=== PATIENT | male | born 1955 | race Caucasian/White ===

== ENCOUNTER 2023-11-03 04:55 | Inpatient (IN) | payer OTHER, MEDICARE ==
[~2023-11-03] VITALS: Ht 177.8 cm; Wt 107.0 kg
[2023-11-03] MEDS ORDERED: ACETAMINOPHEN 500 MG TABLET ONE (05:08)
[2023-11-03] MEDS: ACETAMINOPHEN 500 MG TABLET PO ONE (05:30)
[2023-11-03] MEDS: GABAPENTIN 300 MG CAPSULE ONE (05:30)
[2023-11-03 05:44] LABS: BASOPHILS % (AUTO) 0.7 % (0.0-2.0); EOSINOPHILS # (AUTO) 0.1 K/uL (0.0-0.4); EOSINOPHILS % (AUTO) 2.1 % (0.0-4.0); HEMATOCRIT 43.2 % (36-54); HEMOGLOBIN 14.8 g/dL (14.0-18.0); LYMPHOCYTES # (AUTO) 1.9 K/uL (1.0-5.5); LYMPHOCYTES % (AUTO) 32.1 % (20.5-51.5); MEAN CORPUSCULAR HEMOGLOBIN 31 pg (27-31); MEAN CORPUSCULAR HGB CONC 34 % (32-36); MEAN CORPUSCULAR VOLUME 91 fL (79.0-98.0); MONOCYTES # (AUTO) 0.6 K/uL (0.0-1.0); NEUTROPHILS # (AUTO) 3.3 K/uL (1.8-7.7); NEUTROPHILS % (AUTO) 55.1 % (40.0-70.0); PLATELET COUNT (AUTO) 213 K/uL (130-430); RED BLOOD CELL COUNT(AUTO) 4.75 MIL/uL (4.2-6.2); RED CELL DISTRIBUTION WIDTH 13.6 % (9.0-15.0)
[2023-11-03 05:56] LABS: CALCIUM 8.6 mg/dL (8.4-11.0); CREATININE 0.88 mg/dL (0.55-1.30); POTASSIUM 3.7 mmol/L (3.5-5.1)
[2023-11-03 06:00] LABS: PROTHROMBIN TIME 10.2 SECS (9.5-12.5)
[2023-11-03] MEDS ORDERED: CEFAZOLIN SOD 2 GM in D5W 50 ML IV ONE (06:00)
[2023-11-03] MEDS ORDERED: GABAPENTIN 300 MG CAPSULE PO ONE (06:00)
[2023-11-03 06:01] LABS: ALBUMIN 3.7 g/dL (3.4-4.8); TOTAL BILIRUBIN 0.9 mg/dL (0.0-1.0)
[2023-11-03] MEDS ORDERED: PROPOFOL 200MG/ 20ML VIAL (DIPRIVAN) IV ONE (07:00)
[2023-11-03] MEDS ORDERED: NS IRRIG SOLN 1000 ML IR ONE (07:00)
[2023-11-03] MEDS ORDERED: LR 1,000 ML IV.SOLN IV ONE (07:00)
[2023-11-03] MEDS ORDERED: ONDANSETRON HCL 4 MG/2 ML VIAL ONE (07:00)
[2023-11-03] MEDS ORDERED: BUPIVACAINE /DEX PF 0.75% SPINAL 2 ML AMP INJ ONE (07:00)
[2023-11-03] MEDS ORDERED: WATER FOR IRRIGATION,STERILE 1,000 ML IRRIG.SOLN IR ONE (07:00)
[2023-11-03] MEDS ORDERED: VANCOMYCIN HCL 1000 MG/VIAL IV ONE (07:00)
[2023-11-03] MEDS ORDERED: BUPIVACAINE /PF 0.25% 30 ML VIAL INJ ONE (07:00)
[2023-11-03] MEDS ORDERED: DEXAMETHASONE SOD PHOSPHATE 4 MG/ML VIAL ONE (07:00)
[2023-11-03] MEDS ORDERED: ROPIVACAINE HCL/PF 5 MG/ML 0.5% 30 ML VIAL ONE (07:00)
[2023-11-03] MEDS ORDERED: fentaNYL CITRATE/PF 100 MCG/2 ML AMP ONE (07:00)
[2023-11-03] MEDS ORDERED: TRANEXAMIC ACID 1,000 MG/10 ML VIAL ONE (07:00)
[2023-11-03] MEDS ORDERED: MIDAZOLAM HCL 2 MG/2 ML VIAL (VERSED) ONE (07:00)
[2023-11-03] MEDS ORDERED: SEVOFLURANE 15 MIN GAS INH ONE (07:00)
[2023-11-03] MEDS ORDERED: KETOROLAC TROMETHAMINE 30 MG VIAL ONE (07:00)
[2023-11-03] MEDS ORDERED: NS IRRIG SOLN 5000 ML IR ONE (07:00)
[2023-11-03 07:51] VITALS: PULSE 56; RESP 20; TEMP 97.4; O2SAT 97
[2023-11-03] MEDS ORDERED: ACETAMINOPHEN I.V. 1000 MG 100 ML IV ONE (07:58)
[2023-11-03] MEDS ORDERED: ONDANSETRON HCL 4 MG/2 ML VIAL IVP PRN (09:00)
[2023-11-03] MEDS ORDERED: METOCLOPRAMIDE HCL 10 MG/2 ML VIAL IVP PRN (09:00)
[2023-11-03] MEDS ORDERED: HYDROmorphone 1 MG/ML INJ. CARTRIDGE IVP PRN (09:00)
[2023-11-03] MEDS ORDERED: NALOXONE HCL 0.4 MG/ML AMP (NARCAN) IVP PRN (09:00)
[2023-11-03] MEDS ORDERED: KETOROLAC TROMETHAMINE 30 MG VIAL IVP PRN (09:00)
[2023-11-03] MEDS ORDERED: TAMSULOSIN HCL 0.4 MG CAP PO PRN (09:45)
[2023-11-03 10:19] VITALS: BP_SYST 142
[2023-11-03] MEDS ORDERED: HYDROmorphone 1 MG/ML INJ. CARTRIDGE ONE (12:49)
[2023-11-03] MEDS ORDERED: TAMSULOSIN HCL 0.4 MG CAP PO ONE (14:00)
[2023-11-04] MEDS ORDERED: TAMSULOSIN HCL 0.4 MG CAP PO SCH (09:00)
== END 2023-11-03 17:36 | disposition home health service (06) | DRG 470 ==
LOC: SMU 04:55
PROVIDERS: ADMIT Orthopaedic Surgery Sports Medicine; ATTEND Orthopaedic Surgery Sports Medicine
PROC: 0SRC0JA Replacement of Right Knee Joint with Synthetic Substitute, Uncemented, Open Approach (ICD-10-PCS; principal; 2023-11-03 07:00)
DX: M17.11 Unilateral primary osteoarthritis, right knee (principal)
CPT/HCPCS: 36415; 71046; 73560; 80053; 85025; 85610; 85730; 87081; 88305; 88311; 93005; 97110-GP; 97116-GP; 97530-GP; J0131; J0690; J0696; J1100; J1170; J1885; J2405; J2704; J3010; J3370; J3465; J3490; J7060; J7120